=== PATIENT | female | born 1985 | race Caucasian/White ===

== ENCOUNTER 2016-09-16 08:06 | Inpatient (IN) | payer OTHER ==
[2016-09-16] MEDS ORDERED: Dinoprostone* 10 MG VAG.SUPP VAGINAL ONE (08:18)
[2016-09-16] MEDS ORDERED: Nalbuphine* 20 MG/ML 1 ML VIAL IV PRN (22:42)
[2016-09-16 23:00] LABS: Hematocrit 36 % (35-47); Hemoglobin 11.8 g/dl (12.0-16.0); Mean Corpuscular HGB Conc 33 g/dl (31-36); Mean Corpuscular Hemoglobin 27 pg (27-31); Mean Corpuscular Volume 82 fL (80-97); Mean Platelet Volume 8 um3 (7.4-10.4); Red Blood Count 4.35 10^6/ul (4.0-5.4); Red Cell Distribution Width 15 % (10.5-15); White Blood Count 15.4 10^3/ul (3.5-10.8)
[2016-09-17] MEDS ORDERED: OBEPIDURAL* 250 ML ONE (00:08)
[2016-09-17] MEDS ORDERED: EPHEDrine (Pressors)* 50 MG/ML VIAL IV PUSH PRN (01:57)
[2016-09-17] MEDS ORDERED: Famotidine TAB* 20 MG PO PRN (01:57)
[2016-09-17] MEDS ORDERED: Sodium Citrate/Citric Acid* 15 ML UDC PO PRN (01:57)
[2016-09-17] MEDS ORDERED: Phenylephrine IV* 40 MCG/ML 10 ML SYRINGE IV PUSH PRN (01:57)
[2016-09-17] MEDS ORDERED: OBEPIDURAL* 250 ML EPIDURAL SCH (02:00)
[2016-09-17] MEDS ORDERED: Oxytocin in LR* 20 UNITS/1,000 ML BAG IVPB ONE (04:43)
[2016-09-17] MEDS ORDERED: Oxytocin in LR* 20 UNITS/1,000 ML BAG IVPB SCH ×2 (07:00→11:00)
[2016-09-17] MEDS ORDERED: Dibucaine 1% 28.35 GM TUBE PR PRN (10:45)
[2016-09-17] MEDS ORDERED: Measles, Mumps,Rubella VACC* 0.5 ML/VIAL SUBCUT ONE (10:45)
[2016-09-17] MEDS ORDERED: Glycerin ADULT SUPP PR PRN (10:45)
[2016-09-17] MEDS ORDERED: Acetaminophen TAB* 325 MG PO PRN (10:45)
[2016-09-17] MEDS ORDERED: Witch Hazel PAD* JAR TOPICAL PRN (10:45)
[2016-09-17] MEDS ORDERED: RHO D Immune Globulin (HUMAN)* 300 MCG = 1,500 I.U. INJ IM ONE (10:45)
[2016-09-17] MEDS ORDERED: Simethicone CHEW TAB* 80 MG PO SCH (12:30)
[2016-09-17] MEDS: Ibuprofen TAB* 600 MG PO PRN ×3 (12:31→23:48)
[2016-09-17] MEDS: Docusate CAP* 100 MG PO SCH ×2 (14:15→20:22)
[2016-09-17] MEDS ORDERED: oxyCODONE/Acetamin 5/325 MG* TAB PO PRN (18:00)
[2016-09-18] MEDS: Docusate CAP* 100 MG PO SCH ×3 (09:21→21:07)
[2016-09-18 11:36] LABS: Hematocrit 29 % (35-47); Hemoglobin 9.7 g/dl (12.0-16.0); Mean Corpuscular HGB Conc 33 g/dl (31-36); Mean Corpuscular Hemoglobin 27 pg (27-31); Mean Corpuscular Volume 84 fL (80-97); Mean Platelet Volume 9 um3 (7.4-10.4); Red Blood Count 3.53 10^6/ul (4.0-5.4); Red Cell Distribution Width 15 % (10.5-15); White Blood Count 13.6 10^3/ul (3.5-10.8)
[2016-09-18] MEDS: Ibuprofen TAB* 600 MG PO PRN ×2 (12:24→21:07)
[2016-09-18] MEDS: Ferrous Gluconate TAB* 324 MG TAB PO SCH ×2 (12:24→21:07)
[2016-09-18 19:28] VITALS: BP 131/87
--- NOTE | 2016-09-18 20:05 | PTEDU ---
Patient Name: SHARLA DAVIS SHARLA DAVIS selected video: Follow Me Mum: [employer] to Successful to view on 7 at 8:03:52 PM [id number]
[2016-09-19] MEDS: Ibuprofen TAB* 600 MG PO PRN (08:26)
[2016-09-19] MEDS: Ferrous Gluconate TAB* 324 MG TAB PO SCH (08:27)
[2016-09-19] MEDS: Docusate CAP* 100 MG PO SCH (08:27)
--- NOTE | 2016-09-19 10:06 | PTEDU ---
Patient Name: SHARLA DAVIS SHARLA DAVIS selected video: BBOB: Nurturing Your Gorgeous \T\Growing Baby by to view on 09/19/2016 at 10:06:23 AM [id number]
== END 2016-09-19 11:02 | disposition home or self-care (01) | DRG 775 ==
LOC: MCHOBOUT 08:06 → MCHOB 20:28
PROVIDERS: ADMIT Midwife; ATTEND Midwife
PROC: 10E0XZZ Delivery of Products of Conception, External Approach (ICD-10-PCS; principal; 2016-09-17)
PROC: 0KQM0ZZ Repair Perineum Muscle, Open Approach (ICD-10-PCS; 2016-09-17)
DX: O48.0 Post-term pregnancy (principal); O71.4 Obstetric high vaginal laceration alone; O77.0 Labor and delivery complicated by meconium in amniotic fluid; O90.81 Anemia of the puerperium; D64.9 Anemia, unspecified; Z3A.41 41 weeks gestation of pregnancy; Z37.0 Single live birth
CPT/HCPCS: 36415; 59200; 85025; 86850; 86900; 86901; 90707; A9270-GY; J2300